=== PATIENT | female | born 1940 | race Asian ===

== ENCOUNTER 2023-07-24 08:46 | Observation (INO) | payer OTHER ==
[2023-07-24] MEDS ORDERED: ACETAMINOPHEN 1000 MG/100 ML BAG IVPB ONE (09:07)
[2023-07-24] MEDS ORDERED: SODIUM CHLORIDE 0.9% 500 ML INFUS.BAG IV ONE (09:07)
[2023-07-24] MEDS ORDERED: CEFTRIAXONE 1 GM in DEXTROSE 5%-WATER - 50 ML IVPB ONE (09:46)
[2023-07-24] MEDS ORDERED: cefTRIAXone SODIUM 1 GM VIAL ONE (09:50)
[2023-07-24 10:01] LABS: HEMATOCRIT 40.2 % (32.4-45.2); HEMOGLOBIN 13.1 G/dL (10.7-15.3); MCH 31.9 pg (25.7-33.7); MCHC 32.6 g/dl (32.0-36.0); MEAN CELL VOLUME 98.1 fl (80-96); MEAN PLT VOLUME 6.9 fl (7.5-11.1); PLATELET COUNT 228.1 10^3/uL (134-434); RDW 12.9 % (11.6-15.6); WHITE BLOOD COUNT 11.8 10^3/uL (4.0-10.8)
[2023-07-24 10:06] LABS: BLOOD UREA NITROGEN 13.4 mg/dl (7-18); CALCIUM 8.4 mg/dl (8.5-10.1); CREATININE 0.5 mg/dl (0.6-1.3); POTASSIUM 3.8 mmol/L (3.5-5.1); SGOT/AST 19.1 U/L (15-37); SGPT/ALT 15.4 U/L (7-52); TOT PROT 6.1 g/dl (6.4-8.2)
[2023-07-24 10:28] LABS: EPITHELIAL CELLS FEW /hpf
[2023-07-24 11:17] LABS: PLATELET ESTIMATE ADEQUATE
[2023-07-24 11:50] LABS: BILIRUBIN,TOTAL 0.6 mg/dL (0.2-1)
[2023-07-24 11:54] LABS: N-TERMINAL BNP 205.2 pg/ml (5-450)
[2023-07-24 12:11] LABS: LACTIC ACID 2.4 mmol/L (0.4-2.0)
[2023-07-24] MEDS ORDERED: SODIUM CHLORIDE 1,000 ML IV SCH (12:45)
[2023-07-24 14:24] LABS: CHOLESTEROL 180 mg/dl (50-200); HDL CHOLESTEROL 62 mg/dl (40-60); LDL CHOLESTEROL (ONLY DFH) 106 mg/dl (5-100)
[2023-07-24 17:20] VITALS: BMI 29.7
[2023-07-24] MEDS: ACETAMINOPHEN 500 MG TABLET (FP) PO PRN (21:04)
[2023-07-25] MEDS ORDERED: PIPERACILLIN/TAZOB 3.375 GM 3.375 GM in DEXTROSE 5%-WATER - 50 ML IVPB ONE (07:15)
[2023-07-25] MEDS: LACTOBACILLUS ACIDOPHILUS 1 TABLET PO SCH (09:28)
[2023-07-25] MEDS: ENOXAPARIN NA (PORCINE) 40 MG/0.4 ML DISP.SYRIN SQ SCH (09:28)
[2023-07-25] MEDS: FAMOTIDINE 20 MG TABLET PO SCH (09:30)
[2023-07-25] MEDS: DOCUSATE SODIUM 100 MG CAPSULE (FP) PO SCH ×2 (09:33→21:24)
[2023-07-25] MEDS ORDERED: amLODIPine BESYLATE 2.5 MG TABLET (FP) PO SCH (10:00)
[2023-07-25] MEDS ORDERED: CEFTRIAXONE 1 GM in DEXTROSE 5%-WATER - 50 ML IVPB SCH (10:00)
[2023-07-25] MEDS ORDERED: LOSARTAN POTASSIUM 25 MG TABLET PO SCH (10:00)
[2023-07-25] MEDS: CEFTRIAXONE 1 GM in DEXTROSE 5%-WATER - 50 ML IVPB SCH (12:08)
[2023-07-25 19:40] LABS: HEMATOCRIT 41.5 % (32.4-45.2); HEMOGLOBIN 13.7 G/dL (10.7-15.3); MCH 32.5 pg (25.7-33.7); MEAN CELL VOLUME 98.6 fl (80-96); MEAN PLT VOLUME 7.1 fl (7.5-11.1); PLATELET COUNT 222.2 10^3/uL (134-434); RBC 4.21 10^6/uL (3.60-5.2); RDW 13.2 % (11.6-15.6); WHITE BLOOD COUNT 9.7 10^3/uL (4.0-10.8)
[2023-07-25 19:53] LABS: PLATELET ESTIMATE ADEQUATE
[2023-07-25 20:08] LABS: BLOOD UREA NITROGEN 6.7 mg/dl (7-18); CALCIUM 8.4 mg/dl (8.5-10.1); CREATININE 0.5 mg/dl (0.6-1.3); MAGNESIUM 1.9 mg/dL (1.8-2.4); PHOSPHOROUS 2.77 (2.5-4.9); POTASSIUM 3.9 mmol/L (3.5-5.1); SGOT/AST 23.1 U/L (15-37); TOT PROT 6.5 g/dl (6.4-8.2)
[2023-07-25] MEDS: ACETAMINOPHEN 500 MG TABLET (FP) PO PRN (21:56)
[2023-07-25 22:02] VITALS: RESP 18
[2023-07-26 00:31] LABS: BILIRUBIN,TOTAL 0.3 mg/dL (0.2-1)
[2023-07-26 08:40] LABS: HEMATOCRIT 38.2 % (32.4-45.2); HEMOGLOBIN 12.6 G/dL (10.7-15.3); MCH 32.2 pg (25.7-33.7); MCHC 32.9 g/dl (32.0-36.0); MEAN PLT VOLUME 7.6 fl (7.5-11.1); PLATELET COUNT 223.6 10^3/uL (134-434); RDW 13.2 % (11.6-15.6); WHITE BLOOD COUNT 7.3 10^3/uL (4.0-10.8)
[2023-07-26 09:28] LABS: BLOOD UREA NITROGEN 8.2 mg/dl (7-18); CALCIUM 8.3 mg/dl (8.5-10.1); CREATININE 0.4 mg/dl (0.6-1.3)
[2023-07-26] MEDS: DOCUSATE SODIUM 100 MG CAPSULE (FP) PO SCH (10:18)
[2023-07-26] MEDS: LACTOBACILLUS ACIDOPHILUS 1 TABLET PO SCH (10:18)
[2023-07-26] MEDS: FAMOTIDINE 20 MG TABLET PO SCH (10:18)
[2023-07-26] MEDS: ENOXAPARIN NA (PORCINE) 40 MG/0.4 ML DISP.SYRIN SQ SCH (10:19)
[2023-07-26] MEDS: CEFTRIAXONE 1 GM in DEXTROSE 5%-WATER - 50 ML IVPB SCH (10:20)
[2023-07-26 14:49] VITALS: BP 145/73; PULSE 80; TEMP 98.9
[2023-07-26] MEDS ORDERED: PHENAZOPYRIDINE HCL 100 MG TABLET (FP) PO ONE (15:00)
== END 2023-07-26 17:30 | disposition home or self-care (01) ==
LOC: FER 08:46 → INTOOBSV 11:57 → UNDOADMOB 11:57 → FM/S 11:57
PROVIDERS: ADMIT Internal Medicine; ATTEND Internal Medicine
PROC: 3E03329 Introduction of Other Anti-infective into Peripheral Vein, Percutaneous Approach (ICD-10-PCS; principal; 2023-07-24)
PROC: 3E033NZ Introduction of Analgesics, Hypnotics, Sedatives into Peripheral Vein, Percutaneous Approach (ICD-10-PCS; 2023-07-24)
PROC: 3E023GC Introduction of Other Therapeutic Substance into Muscle, Percutaneous Approach (ICD-10-PCS; 2023-07-24)
PROC: 3E0337Z Introduction of Electrolytic and Water Balance Substance into Peripheral Vein, Percutaneous Approach (ICD-10-PCS; 2023-07-24)
DX: N39.0 Urinary tract infection, site not specified (principal); N12 Tubulo-interstitial nephritis, not specified as acute or chronic; I10 Essential (primary) hypertension; R77.8 Other specified abnormalities of plasma proteins; R00.0 Tachycardia, unspecified; Z88.5 Allergy status to narcotic agent
CPT/HCPCS: 0241U-QW; 36415; 71045-TC-FY; 74177-TC; 80048; 80053; 80061; 81003; 81015; 83036; 83605; 83690; 83735; 83880; 84100; 84484; 85027; 86140; 87040; 87086; 87186; 93005; 93306-TC; 96365; 96368; 96372; 96375; 96376; 99285-25; G0378; Q9967